=== PATIENT | male | born 1960 | race Caucasian/White ===

== ENCOUNTER → 2017-10-27 14:07 | Outpatient (CLI) | payer BC, SELFPAY ==
[2017-10-27 15:59] LABS: AST(SGOT) 16 U/L (15-37); Alanine Aminotransfer ALT/SGPT 40 U/L (16-61); Albumin, Serum 3.8 g/dL (3.2-5.0); Alkaline Phosphatase 88 U/L (45-117); Anion Gap 11 (5-15); BUN 19 mg/dL (7-18); BUN/Creat Ratio 18.6 RATIO (10-20); Bilirubin, Direct 0.08 mg/dL (0.00-0.30); Calcium,Total 8.6 mg/dL (8.5-10.1); Chloride 106 mmol/L (98-107); Cholesterol 184 mg/dL (200); Creatinine, Serum 1.02 mg/dL (0.70-1.30); EST Glomerular Filtration Rate 80 mL/min (>60); Est Glom Filt Rate - Afr Amer 97 mL/min (>60); Globulin 3.6 g/dL (2.2-4.2); Glucose 259 mg/dL (74-106); High Density Lipoprotein 41 mg/dL; Potassium 4.2 mmol/L (3.5-5.1); Protein, Total 7.4 g/dL (6.4-8.2); Sodium Level 140 mmol/L (136-145); Triglycerides 296 mg/dL; Very Low Density Lipoprotein 59 mg/dL (5-40)
[2017-10-27 16:03] LABS: Hemoglobin A1c 6.8 % (4.2-6.3)
[2017-10-27 16:11] LABS: Microalbumin,Random Urine 15.2 mg/L (NO RANGE EST.); Microalbumin:Creatinine Ratio 18.2 mg/g CRE (<30 mg/g CRE)
== END ==
PROVIDERS: Family Provider Family Medicine; PCP Family Medicine; Visit Provider Family Medicine
DX: E11.9 Type 2 diabetes mellitus without complications (principal); E78.5 Hyperlipidemia, unspecified
CPT/HCPCS: 36415; 80048; 80061; 80076; 82043; 82570; 83036

== ENCOUNTER → 2018-03-02 11:10 | Outpatient (CLI) | payer BC, SELFPAY ==
[2015-12-07 15:32] VITALS: BMI 29.8
--- NOTE | 2018-03-02 11:18 | RAD_ITS ---
STUDY: X-RAY CHEST REASON FOR EXAM: Male, 57 years old. Pneumonia. Cough. TECHNIQUE: Frontal and lateral views of the chest. COMPARISON: None. FINDINGS: The lungs are clear and expanded. There is no demonstrated pleural abnormality. Normal size heart. Normal mediastinum and elaine. Normal visualized pulmonary arteries. Normal visualized aortic arch and descending thoracic aorta. Normal visualized thoracic spine. Normal visualized ribs, clavicles, and shoulders. There is no demonstrated abnormality of the visualized soft tissue structures of the upper abdomen. RAD/Chest PA and Lateral IMPRESSION: Normal x-ray examination of the chest. Electronically Signed: Adilson Romero MD at 17:08 EST , Service support ,
--- OUTSIDE RECORDS SUMMARY | 2018-06-03 15:26 | XMS RPT_ITS ---
:1960 Author Organization [facility] Care Team Providers Name Role Phone TIBURCIO VAZ Attending Unavailable BIRO, TIBURCIO Referring Unavailable BIRO, TIBURCIO Attending Unavailable BIRO, TIBURCIO Referring Unavailable BIRO, TIBURCIO Attending Unavailable BIRO, TIBURCIO Referring Unavailable Jolliff, Katelyn Attending Unavailable Jolliff, Katelyn Referring Unavailable Jolliff, Katelyn Primary Care Unavailable Jolliff, Katelyn Primary Care Unavailable AmauriBridger pichardo Attending Unavailable Jolliff, Katelyn Attending Unavailable Jolliff, Katelyn Primary Care Unavailable PROBLEMS PROBLEMS DATE TYPE CONDITION / CODE ATTENDING STATUS SOURCE 03/02/2018 Unknown J15.9 - Katelyn Heath Active [facility] pneumonia / Repository J15.9(ICD-10) 01/27/2018 Admitting Sprain of ribs, [facility] Diagnosis initial encounter [facility] [place] / Repository S23.41XA(ICD-10) 01/27/2018 Admitting Sprain of [employer], [facility]CIO [facility] of [facility] [place] thoracic spine, Repository initial encounter / S23.3XXA(ICD-10) 01/27/2018 [facility] [employer] [facility] Diagnosis unspecified site [facility] [place] of right knee, Repository initial encounter / S83.91XA(ICD-10) PROCEDURES PROCEDURES No Procedure Records FoundRESULTS RESULTS EMERGENCY DEPARTMENT Observed: 03/07/2018 Status: F Source: PELKIE SUMMARY 5:32 AM [facility] REPOSITORY [facility] Medical Records Department [address] [place] [address] Emergency Department Summary 03/06/18 0249 MR#: [id number] Acct: [id number] Name: RICH MCCONNELL Rep #: [id number] : 1960 57 From: Bridger Baugh MD PCP: Katelyn Heath MD Status: DEP ER - ER Visit Summary Date of Service: 03/06/18 Chief Complaint: Rash History of Present Illness: The patient is a [address] Jaffe. He reports that he has a cough that began approximately 3 days ago. He was seen in the office and had a chest x-ray. States this did not show pneumonia, but that he had different breath sounds on the right. He was started on a Z-Sung and Robitussin cf. He reports that he has not had either of these previously. He notes that he had a small amount of rash yesterday. However, tonight at 1130 the rash became much worse. He took a dose of Benadryl just prior to coming emergency department. States that now the rash is essentially resolved. Patient reports that his cough is improving. States it is productive of white, thick sputum without blood. No fever or chills. No shortness of breath. He has a sore throat is 3 out of 10 severity. Reports he has had diarrhea 4-5 times since starting the antibiotic. Patient denies any change in soap, shampoo, laundry detergent, or fabric softener. No new clothing, bedding, carpeting, or pets. No new medications in the past month. Physical Examination: Vitals: Stable. Afebrile. General: Well-nourished and well-developed. Head: Normocephalic atraumatic. HEENT: No angioedema of the lips, tongue, oropharynx. Neck: Supple, no lymphadenopathy. No JVD. Nontender. Cardiovascular: Regular rate and rhythm. No murmurs. Respiratory: No respiratory distress. Clear to auscultation bilaterally. Abdominal: Soft, nontender, nondistended, normal bowel sounds. No guarding, rebound, or peritoneal signs. Back: Nontender. Extremities: Nontender, no edema. Skin: Normal color, hives scattered over the anterior shins bilaterally. Neurologic: Alert and oriented 3. Cranial nerves II through XII are intact. Normal strength and sensation. Psych: Normal affect. Emergency Department Course and Treatment: Patient refused an IV, labs, UA, or chest x-ray. He was treated with Benadryl and prednisone here. Treatment Plan: Discussed the patient that I do not have an explanation for his allergic reaction. However, if the only things that were new were Zithromax and Robitussin cf. and he had a negative chest x-ray that I would stop these. He will be discharged with Zyrtec and 4 additional days of prednisone. Instructed follow-up Dr. Jaffe in 1-2 days not improving. Return to the emergency department for any worsening symptoms. Disposition: To home in improved and stable condition. Impression: 1. Allergic reaction, acute. 2. URI. This note was generated with [employer] dictation software. It may contain incorrect words, spelling, and punctuation that were not noted in review of the chart prior to signing ED Disposition - Plan for ED Patient: Disposition: Home or Assisted Living Chief Complaint: Allergic Reaction Instructions: ED Drug React Allergic Prescriptions: Cetirizine HCl [Zyrtec] 10 mg PO DAILY #14 capsule predniSONE tablet 40 mg PO DAILY #8 tablet Referrals: Katelyn Heath MD [Primary Care Provider] - 1-2 Days if not improving What to do if you have Problems For any increased pain, shortness of breath, bleeding, nausea or vomiting, chest pain, or any unexpected problems, contact your Primary Care Provider. Call [facility] ([phone]) or report to the closest Emergency Room. Call 911 if necessary. 03/07/18 0532 <Electronically signed by Bridger Baugh MD> Date Bridger Baugh MD Cosigner Signature (If Indicated): Date CC: Katelyn Heath MD CHEST PA AND LATERAL Observed: 03/02/2018 Status: F Source: MADISYN 11:18 AM [facility] REPOSITORY [facility] Imaging Services [address] [place] [address] Chest PA and Lateral MR#: [id number] Acct: [id number] Name: RICH MCCONNELL Rep #: [id number] : 1960 M 57 From: Adilson Romero MD PCP: Katelyn Heath MD Status: REG CLI Study: Chest PA and Lateral Date of Exam: 03/02/18 Exam# [id number] Ordering Dr: Katelyn Heath MD STUDY: X-RAY CHEST REASON FOR EXAM: Male, 57 years old. Pneumonia. Cough. TECHNIQUE: Frontal and lateral views of the chest. COMPARISON: None. FINDINGS: The lungs are clear and expanded. There is no demonstrated pleural abnormality. Normal size heart. Normal mediastinum and elaine. Normal visualized pulmonary arteries. Normal visualized aortic arch and descending thoracic aorta. Normal visualized thoracic spine. Normal visualized ribs, clavicles, and shoulders. There is no demonstrated abnormality of the visualized soft tissue structures of the upper abdomen. RAD/Chest PA and Lateral IMPRESSION: Normal x-ray examination of the chest. Electronically Signed: Adilson Romero MD at 17:08 EST , Service support , CC: Katelyn Heath MD [employer] Net: Signed XR KNEE RIGHT 3 Observed: 01/27/2018 Status: F Source: [employer] 11:34 AM [place] REPOSITORY EXAM TYPE: XR KNEE RIGHT 3 VIEWS EXAM DATE AND TIME: 01/27/2018 11:34 AM EST INDICATION: 57-year-old male with knee pain. COMPARISON: None. TECHNIQUE: 3 views of the right knee. FINDINGS: No acute fracture. Joint alignment is anatomic. There is minimal degenerative spurring of the medial knee compartment. No significant joint effusion. Soft tissues are within normal limits. IMPRESSION: 1. No acute fracture or traumatic malalignment.. 2. Minimal degenerative spurring of the medial knee compartment. XR SPINE THORACIC 2 Observed: 01/27/2018 Status: F Source: [employer] [facility]) VIEWS 11:33 AM SYSTEM ([employer]) REPOSITORY XR SPINE THORACIC 2 VIEWS CLINICAL STATEMENT: Fall at work. Back pain. COMPARISON: None. TECHNIQUE: AP, lateral and swimmer's projections. FINDINGS: Thoracic vertebral bodies appear maintained in height and the pedicles are intact. There is multilevel mild to moderate degenerative disc changes predominantly at the lower thoracic levels. No acute fracture is visible. There is no obvious paravertebral swelling. IMPRESSION: Multilevel [id number] degenerative disc changes of the dorsal spine with no acute osseous abnormality. XR RIBS RIGHT Observed: 01/27/2018 Status: F Source: [employer] [facility] 11:33 AM [place] REPOS[place] EXAM TYPE: XR RIBS RIGHT EXAM DATE AND TIME: 01/27/2018 11:33 AM EST INDICATION: 57 years old Male with pain after trauma. COMPARISON: None. TECHNIQUE: Frontal view of the chest. FINDINGS: No pneumothorax, pleural effusion, or focal airspace consolidation. Heart is normal in size. No acute displaced rib fractures. IMPRESSION: 1. No acute cardiopulmonary process. 2. No acute displaced rib fractures. BASIC METABOLIC Collected: 10/27/2017 Status: F Source: [place] PROFILE (BMP) 2:09 PM [facility] REPOSITORY TYPE CODE TESTS RESULT OUT OF RANGE REFERENCE UNITS LAB L501.0100 74-106 mg/dL High GLU 259 Result Comment: Glucose result greater than or equal to 200 mg/dL suggests DIABETES MELLITUS per A.D.A. criteria. Please note revised GLUCOSE reference range effective 2017. LAB L501.1000 7-18 mg/dL High BUN 19 LAB L501.1100 0.70-1.30 mg/dL Normal CREAT,SERUM 1.02 Result Comment: The validity of the calculated GFR AND GFRAA in patients over 70 years has not been determined. Clinical correlation is essential. LAB L501.1110 >60 mL/min Normal EST GFR 80 Result Comment: Non- GFR Calc LAB L501.1115 >60 mL/min Normal EST GFR - AA 97 Result Comment: GFR Calc LAB L501.1300 10-20 RATIO Normal BUN/CRE 18.6 LAB L501.2200 8.5-10.1 mg/dL CA Normal 8.6 LAB L501.5300 136-145 mmol/L NA Normal 140 LAB L501.5600 3.5-5.1 mmol/L K Normal 4.2 LAB L501.5900 98-107 mmol/L CL Normal 106 LAB L501.6100 21.0-32.0 mmol/L Normal CO2 23.0 LAB L501.6200 5-15 Normal GAP 11 Performed By: #### L500.2500, L500.3400, L500.4100 #### [facility] [address] [place], [address] LIVER PROFILE Collected: 10/27/2017 Status: F Source: [place] 2:09 PM [facility] REPOSITORY TYPE CODE TESTS RESULT OUT OF RANGE REFERENCE UNITS LAB L501.1500 6.4-8.2 g/dL Normal T PROT 7.4 LAB L501.1800 3.2-5.0 g/dL Normal ALB 3.8 LAB L501.1950 2.2-4.2 g/dL Normal GLOB 3.6 LAB L501.4100 15-37 U/L Normal AST 16 LAB L501.4305 45-117 U/L Normal ALK P 88 LAB L501.4405 16-61 U/L Normal ALT 40 LAB L501.4600 0.20-1.00 mg/dL Normal T BILI 0.30 LAB L501.4700 0.00-0.30 mg/dL Normal D BILI 0.08 Performed By: #### L500.2500, L500.3400, L500.4100 #### [facility] [address] [place], [address] LIPID PROFILE Collected: 10/27/2017 Status: F Source: [place] 2:09 PM [facility] REPOSITORY TYPE CODE TESTS RESULT OUT OF RANGE REFERENCE UNITS LAB L501.4900 200 mg/dL Normal CHOL 184 Result Comment: <200 mg/dL Desirable 200-240 mg/dL Borderline >240 mg/dL High Risk LAB L501.5000 mg/dL High TRIG 296 Result Comment: The drugs N-Acetylcysteine and Metamizole may falsely depress this assay. Serum Triglycerides Reference Interval Normal <150 mg/dL Borderline high 150 - 199 mg/dL High 200 - 499 mg/dL Very High > or = 500 mg/dL LAB L501.6400 mg/dL Normal HDL 41 Result Comment: The drugs N-Acetylcysteine and Metamizole may falsely depress this assay. Reference Range HDL <40 mg/dL Low HDL Cholesterol HDL >or= 60 mg/dL High HDL Cholesterol LAB L501.6500 0-130 mg/dL Normal LDL 84 LAB L501.6600 5-40 mg/dL High VLDL 59 Performed By: #### L500.2500, L500.3400, L500.4100 #### [facility] [address] [place], [place], [address] HEMOGLOBIN A1C Collected: 10/27/2017 Status: F Source: M[place]YN 2:09 PM [facility] REPOSITORY TYPE CODE TESTS RESULT OUT OF RANGE REFERENCE UNITS LAB L501.9985 4.2-6.3 % High HGB A1C 6.8 Performed By: #### L501.9985 #### [facility] [address] [place], [place], [address] MICROALB:CREAT Collected: 10/27/2017 Status: F Source: [place] RATIO,RANDOM UR 2:09 PM [facility] REPOSITORY TYPE CODE TESTS RESULT OUT OF RANGE REFERENCE UNITS LAB L501.1200 NO RANGE EST. mg/dL Normal UR CREAT 83.30 LAB L502.0500 NO RANGE EST. mg/L Normal 15.2 MICROALBUMIN ,UR LAB L502.0600 <30 mg/g CRE mg/g CRE Normal 18.2 MALB:CREAT Performed By: #### L502.0250 #### [facility] [address] [place], [address] ALLERGIES ALLERGIES DATE TYPE / CODE NAME / CODE REACTION SEVERITY SOURCE 03/06/2018 Drug No Known Unknown [facility] Allergy/4160 Allergies/F00 Hospital 41337(SNOMED 3143544(RXNOR Repository CT) M) ENCOUNTERS ENCOUNTERS ADMIT/DISCHARGE ACCOUNT NUMBER ADMITTING ENCOUNTER LOCATION SOURCE CLASS 03/06/2018/03/06/20 [id number] Emergency [address] ding:ED Repository 03/02/2018 [id number] Ambulatory [facility] ding:MTRAD Repository 01/27/2018 [id number] Ambulatory [facility] [place] Repository 01/27/2018 [id number] Ambulatory [facility] [place] 01/27/2018 [id number] Ambulatory [facility] [place] 01/27/2018 [id number] Ambulatory [facility] [place] 01/27/2018 [id number] Ambulatory [facility] [place] Rep[place] 10/27/2017 [id number] Ambulatory [facility] ding:MFPLAB Repository PAYERS PAYERS ENCOUNTER GUARANTOR PAYER SUBSCRIBER SOURCE 03/06/2018 RICH [facility] [place] [address] [place] [id number] Insurance:ANTHEMPolic GoldsmithDOB: [employer] y Number: [id number] Health Doctors [id number] [place]ository [place] [id number]: Date:[id number], [facility] [address]AR: 03/06/2018 Secondary NOT GIVENUNK [place] Insurance:SELF PAY [facility] Number: Effective Repository Date:2018-03-06 03/02/2018 RICH [facility] [address] [place]yn [id number] Insurance:ANTHEMPolic GoldsmithDOB: [facility] [employer] y Number: [id number] Health Doctors [id number] Repository [place] [id number]: Date:0182-74-37KH [address], [facility]) [address]AG: 03/02/2018 Secondary NOT GIVENUNK Moz[place] Insurance:SELF PAY [facility] Number: Effective Repository Date:2018-03-02 10/27/2017 Rich M Primary [place] [address] [place] [id number] Insurance:ANTHEMPolic GoldshengithB: [employer] y Number: [id number] Haven [id number] Repository [place] [address]Wbb: Date:8068-25-00[address]EQAHMVK, [place] () [address]AL: 10/27/2017 Secondary NOT GIVENUNK Madisyn Insurance:SELF PAY [facility] Number: Effective Repository Date:2017-10-27
== END ==
PROVIDERS: Family Provider Family Medicine; PCP Family Medicine; Referring Provider Family Medicine; Visit Provider Family Medicine
DX: J15.9 Unspecified bacterial pneumonia (principal)
CPT/HCPCS: 71046

== ENCOUNTER 2018-03-06 02:27 | Emergency (ER) | payer BC, SELFPAY ==
[2018-03-06 02:28] VITALS: BP 172/99; PULSE 87; RESP 20; TEMP 36.6; O2SAT 96; BMI 26.4
--- NOTE | 2018-03-06 02:50 | ED.DCSUM_ITS ---
- ER Visit Summary Date of Service: 03/06/18 Chief Complaint: Rash History of Present Illness: The patient is a [address] Jaffe. He reports that he has a cough that began approximately 3 days ago. He was seen in the office and had a chest x-ray. States this did not show pneumonia, but that he had different breath sounds on the right. He was started on a Z-Sung and Robitussin cf. He reports that he has not had either of these previously. He notes that he had a small amount of rash yesterday. However, tonight at 1130 the rash became much worse. He took a dose of Benadryl just prior to coming emergency department. States that now the rash is essentially resolved. Patient reports that his cough is improving. States it is productive of white, thick sputum without blood. No fever or chills. No shortness of breath. He has a sore throat is 3 out of 10 severity. Reports he has had diarrhea 4-5 times since starting the antibiotic. Patient denies any change in soap, shampoo, laundry detergent, or fabric softener. No new clothing, bedding, carpeting, or pets. No new medications in the past month. Physical Examination: Vitals: Stable. Afebrile. General: Well-nourished and well-developed. Head: Normocephalic atraumatic. HEENT: No angioedema of the lips, tongue, oropharynx. Neck: Supple, no lymphadenopathy. No JVD. Nontender. Cardiovascular: Regular rate and rhythm. No murmurs. Respiratory: No respiratory distress. Clear to auscultation bilaterally. Abdominal: Soft, nontender, nondistended, normal bowel sounds. No guarding, rebound, or peritoneal signs. Back: Nontender. Extremities: Nontender, no edema. Skin: Normal color, hives scattered over the anterior shins bilaterally. Neurologic: Alert and oriented ?3. Cranial nerves II through XII are intact. Normal strength and sensation. Psych: Normal affect. Emergency Department Course and Treatment: Patient refused an IV, labs, UA, or chest x-ray. He was treated with Benadryl and prednisone here. Treatment Plan: Discussed the patient that I do not have an explanation for his allergic reaction. However, if the only things that were new were Zithromax and Robitussin cf. and he had a negative chest x-ray that I would stop these. He will be discharged with Zyrtec and 4 additional days of prednisone. Instructed follow-up Dr. Jaffe in 1-2 days not improving. Return to the emergency department for any worsening symptoms. Disposition: To home in improved and stable condition. Impression: 1. Allergic reaction, acute. 2. URI. This note was generated with [employer] dictation software. It may contain incorrect words, spelling, and punctuation that were not noted in review of the chart prior to signing ED Disposition - Plan for ED Patient: Disposition: Home or Assisted Living Chief Complaint: Allergic Reaction Instructions: ED Drug React Allergic Prescriptions: Cetirizine HCl [Zyrtec] 10 mg PO DAILY #14 capsule predniSONE tablet 40 mg PO DAILY #8 tablet Referrals: Katelyn Heath MD [Primary Care Provider] - 1-2 Days if not improving
[2018-03-06] MEDS: DiphenhydrAMINE 25 MG Capsule PO (03:05)
[2018-03-06] MEDS: predniSONE 20 MG Tablet 60 MG PO (03:05)
[2018-03-06 03:07] VITALS: BP 164/85; PULSE 80; RESP 16; O2SAT 98
== END 2018-03-06 03:09 | disposition home or self-care (01) ==
LOC: ED 02:56
PROVIDERS: Emergency Provider Emergency Medicine; Family Provider Family Medicine; PCP Family Medicine
DX: T78.40XA Allergy, unspecified, initial encounter (principal); J06.9 Acute upper respiratory infection, unspecified; E11.9 Type 2 diabetes mellitus without complications; I10 Essential (primary) hypertension; G47.33 Obstructive sleep apnea (adult) (pediatric); Z79.84 Long term (current) use of oral hypoglycemic drugs; Z79.899 Other long term (current) drug therapy
CPT/HCPCS: 99283

== ENCOUNTER → 2018-11-04 | Outpatient (CLI) | payer BC, SELFPAY ==
[2018-11-04 13:01] LABS: AST(SGOT) 18 U/L (15-37); Alanine Aminotransfer ALT/SGPT 35 U/L (16-61); Alkaline Phosphatase 76 U/L (45-117); Anion Gap 7 (5-15); BUN 21 mg/dL (7-18); BUN/Creat Ratio 23.9 RATIO (10-20); Bilirubin, Direct 0.12 mg/dL (0.00-0.30); Calcium,Total 8.9 mg/dL (8.5-10.1); Chloride 111 mmol/L (98-107); Cholesterol 161 mg/dL (200); Creatinine, Serum 0.88 mg/dL (0.70-1.30); EST Glomerular Filtration Rate 95 mL/min (>60); Est Glom Filt Rate - Afr Amer 115 mL/min (>60); Globulin 3.5 g/dL (2.2-4.2); Glucose 130 mg/dL (74-106); High Density Lipoprotein 46 mg/dL; Potassium 4.3 mmol/L (3.5-5.1); Protein, Total 7.5 g/dL (6.4-8.2); Sodium Level 142 mmol/L (136-145); Triglycerides 235 mg/dL; Very Low Density Lipoprotein 47 mg/dL (5-40)
== END | disposition home or self-care (01) ==
LOC: MFPLAB 09:49
PROVIDERS: Family Provider Family Medicine; PCP Family Medicine; Referring Provider Family Medicine; Visit Provider Family Medicine
DX: E11.9 Type 2 diabetes mellitus without complications (principal)
CPT/HCPCS: 36415; 80048; 80061; 80076

== ENCOUNTER → 2018-11-25 | Outpatient (CLI) | payer BC, SELFPAY ==
--- NOTE | 2018-11-25 09:18 | RAD_ITS ---
STUDY: X-RAY - LEFT KNEE REASON FOR EXAM: Male, 58 years old. Left knee pain TECHNIQUE: 4 view(s) of the knee. COMPARISON: None. FINDINGS: Normal visualized distal femur. Normal visualized proximal tibia and fibula. Normal proximal tibiofibular articulation. Normal medial femorotibial compartment. Normal lateral femorotibial compartment. Normal patellofemoral articulation. The soft tissue structures are unremarkable. RAD/Knee 4 or More Views IMPRESSION: Normal x-ray examination of the knee. Electronically Signed: Patti Marti, at 17:43 EDT Tel , Service support ,
== END | disposition home or self-care (01) ==
LOC: MTRAD 09:17
PROVIDERS: Family Provider Family Medicine; PCP Family Medicine; Referring Provider Family Medicine; Visit Provider Family Medicine
DX: M25.562 Pain in left knee (principal)
CPT/HCPCS: 73564

== ENCOUNTER 2018-12-23 07:30 | Outpatient (RCR) | payer BC, SELFPAY ==
--- NOTE | 2018-12-19 08:35 | HP.PTEVAL_ITS ---
Patient's Visit Information STEPHANIE MCCONNELL is a 58 year old M referred to Physical Therapy by Katelyn Heath MD with a diagnosis of LEFT KNEE PAIN. Date of Evaluation: 12/19/18 Physical Therapist: Riley Hurst PT, Cert MDT, OCS - Visit Plan Frequency: 2x /Week Duration: 6 Weeks Plan: PT INTERVENTIONS PRE'S QUADS/HAMS/HIP,FLEXABLITY,FUNCTIONAL STRENGTHENING,MODALITIES - Subjective Findings: This 58 y/o male presents to physical therapy with left knee pain. Patient changed jobs with left knee pain . Patient medial knee pain and patella region inferior aspect. Pain is described as ache. Aggravating factors w alking,standing,squatting,kneeling and Stairs. Alevialting factors none. Patient pain doesnt affects sleeping . Patient denies parathesia/tingling. Patient pain affects jobs demands and ADL' . Patient pain affects QOL. SOCAIL: . VOCATION: [employer] - Pain Left Knee Pain Intensity (Out of 10): 4 Pain Intensity Range: 10 - Objective POSTURE:WFL. GAIT: mild decrease stance time. NEURO: intact. EDEMA: absent. AROM: 0-140 degrees supine flexion. MMT: quads4-/5,hams 4/5 ,hip abd/add 4- /5,ankle 5/5. FLEXABILITY: hams min tight. STAIRS: one step at time. PROPRIOCEPTIN: intact - Special Tests R Knee Tod - Meniscus: Negative R Knee Jordon - ACL: Negative R Knee Anterior Drawer - ACL: Negative R Knee Posterior Drawer - PCL: Negative R Knee Valgus - MCL: Positive R Knee Varus - LCL: Positive R Knee Patellar Grind - PFS: Negative - Goals Goal 1:: Indeopendant with HEP Goal Time Frame: 4-6 Weeks Goal 2:: Decrease knee pain by 60% or> to improve function. Goal Time Frame: 4-6 Weeks Goal 3:: Patient be able to perform ADL'S and job demnads without pain. Goal Time Frame: 4-6 Weeks Goal 4:: Patient to improve LFES score by 10points or > to improve QOL Goal Time Frame: 4-6 Weeks - Rehabilitation Potential Physical Therapy Diagnosis: Patient has medial knee pain worse with walking ,standing affects job demnads. Rehabilitation Potential: Good - Anticipated Interventions Patient/Client Instruction: Educate patient on: Condition, Plan of Care For the Purpose of:: To decrease pain, To increase ROM, To improve muscle performance and motor function, To increase tolerance to activity/condition/position, To improve ability of physical actions for home/community/work/leisure, To improve gait and locomotor functions, To improve health of tissue, To decrease soft tissue restriction, To increase flexibility/ROM, To improve ability to perform tasks related to life management Therapeutic Exercise to Include: Strength training, Endurance training, Postural training, Flexibilty training, Dynamic Lumbar Stabilization For the Purpose of:: To decrease pain, To increase ROM, To improve muscle pe rformance and motor function, To increase tolerance to activity/condition/position, To improve ability of physical actions for home/community/work/leisure, To improve health of tissue, To decrease soft tissue restriction, To increase flexibility/ROM, To improve ability to perform tasks related to life management TENS: Yes IF ES: Yes Cryotherapy (ice pack, ice massage): Yes Thermo therapy (hot pack): Yes Ultrasound (thermal/non thermal): Yes For the Purpose of:: To decrease pain, To increase ROM, To improve health of tissue, To decrease soft tissue restriction, To increase flexibility/ROM Thank you for the opportunity to evaluate your patient. For Medicare and Medicare HMO plans, please review the plan of care and approve it. It will need to be FAXED BACK to us at [phone] for Medicare purposes. For Medicare only, by signing this I certify the plan of care. Please let me know if there are questions or concerns regarding this plan of care. Physician Signature: Date:
--- NOTE | 2019-02-01 13:29 | HP.PTDCNRP_ITS ---
HP - Discharge Summary (1) - Patient Information STEPHANIE MCCONNELL was seen in my office for initial evaluation on 12/19/18. The following Plan of Care was established for this patient: Initial Frequency: 2x /Week Initial Duration: 6 Weeks - Anticipated Interventions Patient/Client Instruction: Educate patient on: Condition, Plan of Care For the Purpose of:: To decrease pain, To increase ROM, To improve muscle pe rformance and motor function, To increase tolerance to activity/condition/position, To improve ability of physical actions for home/community/work/leisure, To improve gait and locomotor functions, To improve health of tissue, To decrease soft tissue restriction, To increase flexibility/ROM, To improve ability to perform tasks related to life management Therapeutic Exercise to Include: Strength training, Endurance training, Postural training, Flexibilty training, Dynamic Lumbar Stabilization For the Purpose of:: To decrease pain, To increase ROM, To improve muscle performance and motor function, To increase tolerance to activity/condition/position, To improve ability of physical actions for home/community/work/leisure, To improve health of tissue, To decrease soft tissue restriction, To increase flexibility/ROM, To improve ability to perform tasks related to life management TENS: Yes IF ES: Yes Cryotherapy (ice pack, ice massage): Yes Thermo therapy (hot pack): Yes Ultrasound (thermal/non thermal): Yes For the Purpose of:: To decrease pain, To increase ROM, To improve health of tissue, To decrease soft tissue restriction, To increase flexibility/ROM This patient was last seen in our office . Pertinent comments regarding their Physical therapy will appear below: Patient seen for PT for Intial PT and a visit for ROM and strengthening for left knee pain,thus is d/c. At this point I will be discontinuing this patient from physical therapy. I would be happy to see this patient again in the future if found appropriate by the physician. Thank you! Riley Hurst, PT, Cert MDT, OCS
== END 2018-12-23 19:00 | disposition home or self-care (01) ==
LOC: PT 07:30
PROVIDERS: Family Provider Family Medicine; PCP Family Medicine; Referring Provider Family Medicine; Visit Provider Family Medicine
DX: M25.562 Pain in left knee (principal)
CPT/HCPCS: 97110; 97162

== ENCOUNTER 2019-05-20 00:25 | Emergency (ER) | payer OTHER, SELFPAY ==
[2019-05-20 00:26] VITALS: BP 130/85; PULSE 89; RESP 20; TEMP 36.9; O2SAT 97; BMI 28.0
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
[2019-05-20] MEDS: Orphenadrine 60 MG/2 ML Ampul IM (01:17)
[2019-05-20] MEDS: Ketorolac 30 MG/ML Syringe IM (01:17)
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
[2019-05-20 02:59] VITALS: RESP 16
== END 2019-05-20 03:08 | disposition home or self-care (01) ==
PROVIDERS: Emergency Provider Emergency Medicine; PCP Family Medicine
DX: S29.012A Strain of muscle and tendon of back wall of thorax, initial encounter (principal); S39.012A Strain of muscle, fascia and tendon of lower back, initial encounter; I10 Essential (primary) hypertension; E11.9 Type 2 diabetes mellitus without complications; Z79.84 Long term (current) use of oral hypoglycemic drugs; Z79.899 Other long term (current) drug therapy; V67.0XXA Driver of heavy transport vehicle injured in collision with fixed or stationary object in nontraffic accident, initial encounter; Y93.I9 Activity, other involving external motion; Y92.63 Factory as the place of occurrence of the external cause; Y99.0 Civilian activity done for income or pay
CPT/HCPCS: 72070; 72100; 96372; 99284

== ENCOUNTER → 2019-07-07 | Outpatient (CLI) | payer OTHER, SELFPAY ==
[2019-06-28 08:16] VITALS: BMI 28.0
[2019-07-07 12:59] LABS: AST(SGOT) 19 U/L (15-37); Alanine Aminotransfer ALT/SGPT 42 U/L (16-61); Anion Gap 8 (5-15); BUN 23 mg/dL (7-18); BUN/Creat Ratio 24.2 RATIO (10-20); Calcium,Total 9.5 mg/dL (8.5-10.1); Chloride 104 mmol/L (98-107); Cholesterol 166 mg/dL (200); Creatinine, Serum 0.95 mg/dL (0.70-1.30); EST Glomerular Filtration Rate 87 mL/min (>60); Est Glom Filt Rate - Afr Amer 105 mL/min (>60); Glucose 150 mg/dL (74-106); High Density Lipoprotein 41 mg/dL; Potassium 3.9 mmol/L (3.5-5.1); Sodium Level 136 mmol/L (136-145); Triglycerides 309 mg/dL; Very Low Density Lipoprotein 62 mg/dL (5-40)
== END | disposition home or self-care (01) ==
PROVIDERS: PCP Family Medicine; Referring Provider Family Medicine; Visit Provider Family Medicine
DX: E78.5 Hyperlipidemia, unspecified (principal); E11.9 Type 2 diabetes mellitus without complications; I10 Essential (primary) hypertension
CPT/HCPCS: 36415; 80048; 80061; 84450; 84460

== ENCOUNTER 2019-07-11 07:00 | Outpatient (RCR) | payer OTHER, SELFPAY ==
[2019-05-24 07:33] VITALS: BMI 28.0
[2019-05-31 07:46] VITALS: BMI 28.0
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
--- NOTE | 2019-07-11 08:53 | HP.PTDCSUM ---
It has been my pleasure to treat STEPHANIE MCCONNELL referred by RYANNE Sullivan, with the diagnosis of LUMBAR STRAIN AND for a total of 11 visit(s). Discharge Date: 07/11/19 Please see the following information for a summary of their discharge status. Subjective: Doing well.. alot better ,Less pain at worlk with mpre moblity Bilateral Back Pain Intensity (Out of 10): 1 % Improvement: 75 Objective/Function: POSTURE: mild foward posture. GAIT: reciprocal pattern. SYMMTRIES: align. PALAPTION: tender SI. FLEXABILTY: hams min/mod. LUMBAR ROM: flexion min loss,extension min loss Goal 1:: Patient to be I with HEP. Goal Progress: Goal Met Goal 2:: Patient imprve posture for job demnads. Goal Progress: Goal Met Goal 3:: Patient decrease pain by 60 % or > to improve function with job demnads. Goal Progress: Goal Met Goal 4:: Patient to improve LUMBAR ROM for function of recovery. Goal Progress: Goal Met Goal 5:: Improve bcak owesstry score by 5 ponts or > to improve function. Goal Progress: Goal Met Goal 6:: Patient to RTW fully duty without limitaions Goal Progress: Goal Met Plan: D/C Discharge Comments: HEP If there are questions or concerns regarding this patient's physical therapy, please feel free to call me at [phone]. Thank you for the referral of this patient. Sincerely, Riley Hurst, PT, Cert MDT, OCS
== END 2019-07-11 19:00 | disposition home or self-care (01) ==
LOC: PT 07:00
PROVIDERS: PCP Family Medicine; Referring Provider Physician Assistant; Visit Provider Physician Assistant
DX: S39.012D Strain of muscle, fascia and tendon of lower back, subsequent encounter (principal); S29.019D Strain of muscle and tendon of unspecified wall of thorax, subsequent encounter
CPT/HCPCS: 97014; 97032; 97110; 97161; G0283

== ENCOUNTER → 2019-07-28 | Outpatient (CLI) | payer OTHER, SELFPAY ==
[2019-06-28 08:16] VITALS: BMI 28.0
[2019-07-28 12:49] LABS: Absolute Lymphocyte Count 1.71 X10^3/uL (0.83-4.51); Absolute Neutrophil Count 4.8 X10^3/uL (2.0-7.7); Basophil# 0.02 X10^3/uL; Basophil% 0.3 % (0-1); Eosinophil# 0.09 X10^3/uL; Eosinophils% 1.2 % (0-5); Hematocrit 49.9 % (40-54); Hemoglobin 17.2 g/dL (13.0-16.5); Lymphocyte # 1.71 X10^3/ul (4.0); Lymphocyte % 23.6 % (19-41); Mean Corp Hgb Conc 34.5 g/dL (32-36); Mean Platelet Vol. 10.9 fl (6.2-12.0); Monocyte# 0.59 X10^3/uL; Monocyte% 8.1 % (0-10); NRBC Flagged by Analyzer 0 % (0-5); Neutrophil # 4.83 X10^3/uL (2.7-7.7); Neutrophil % 66.5 % (47-70); Platelet Count 182 K/mm3 (150-450); RBC Distribution Width CV 12.6 % (11.6-14.6); RBC Distribution Width SD 37.7 fl (35.1-43.9); Red Blood Count 5.94 M/mm3 (4.6-6.2); White Blood Count 7.3 K/mm3 (4.4-11.0)
[2019-07-28 13:04] LABS: International Normalized Ratio 1.1; Prothrombin Time (Protime)PT. 13.8 SECONDS (11.7-14.9)
[2019-07-28 13:05] LABS: Partial Thromboplast Time 34.2 Seconds (24.1-36.2)
[2019-07-28 15:32] LABS: ALB/GLOB Ratio 1.1 RATIO (0.9-2.4); AST(SGOT) 18 U/L (15-37); Alanine Aminotransfer ALT/SGPT 44 U/L (16-61); Alkaline Phosphatase 94 U/L (45-117); Anion Gap 11 (5-15); BUN 22 mg/dL (7-18); BUN/Creat Ratio 20.2 RATIO (10-20); CRP < 2.90 mg/L (0.0-3.0); Calcium,Total 9.1 mg/dL (8.5-10.1); Chloride 102 mmol/L (98-107); Creatinine, Serum 1.09 mg/dL (0.70-1.30); EST Glomerular Filtration Rate 74 mL/min (>60); Est Glom Filt Rate - Afr Amer 89 mL/min (>60); Globulin 3.5 g/dL (2.2-4.2); Glucose 317 mg/dL (74-106); Potassium 4.4 mmol/L (3.5-5.1); Protein, Total 7.5 g/dL (6.4-8.2); Sodium Level 137 mmol/L (136-145)
== END | disposition home or self-care (01) ==
LOC: MFPLAB 10:21
PROVIDERS: PCP Family Medicine; Visit Provider Family Medicine
DX: R10.9 Unspecified abdominal pain (principal)
CPT/HCPCS: 36415; 80053; 85025; 85610; 85730; 86140

== ENCOUNTER → 2019-10-12 | Outpatient (CLI) | payer OTHER, SELFPAY ==
[2019-06-28 08:16] VITALS: BMI 28.0
== END | disposition home or self-care (01) ==
LOC: LABSPEC 13:16
PROVIDERS: PCP Family Medicine; Referring Provider Family Medicine; Visit Provider Family Medicine
DX: Z20.828 Contact with and (suspected) exposure to other viral communicable diseases (principal)
CPT/HCPCS: 87635; U0003

== ENCOUNTER → 2019-10-27 | Outpatient (CLI) | payer OTHER, SELFPAY ==
[2019-06-28 08:16] VITALS: BMI 28.0
--- NOTE | 2019-10-27 10:50 | VDLE_ITS ---
Reason For Study: Pain Procedure LEFT Exam performed in department. GSV is normal. A preliminary report was called and/or faxed CFV is compressible, spontaneous, phasic, to Valeria. competent, and demonstrates normal augmentation. FV is compressible, spontaneous, phasic, competent and demonstrates normal augmentation. POP V is compressible, spontaneous, phasic, competent and demonstrates normal augmentation. T/P Trunk is compressible. PTV is compressible. LT PerV is compressible. Interpretation Summary Deep veins of the left lower extremity are patent and compressible segmentally. There is no evidence of left lower extremity deep vein thrombosis. Valvular competence appears intact within the proximal deep venous system on the left . The left great saphenous vein appears patent and compressible segmentally. Ordering Physician: TAL WAGNER Referring Physician: Katelyn Heath M.D. Performed By: Juanita Mccarthy RVT and Student
== END | disposition home or self-care (01) ==
PROVIDERS: PCP Family Medicine
DX: M79.662 Pain in left lower leg (principal)
CPT/HCPCS: 93971

== ENCOUNTER → 2019-12-01 | Outpatient (CLI) | payer OTHER, SELFPAY ==
[2019-06-28 08:16] VITALS: BMI 28.0
--- NOTE | 2019-12-01 16:04 | RAD_ITS ---
STUDY: X-RAY CHEST REASON FOR EXAM: Male, 59 years old. sob TECHNIQUE: PA and lateral views of the chest. COMPARISON: 03/02/2018 FINDINGS: The lungs are clear and expanded. There is no demonstrated pleural abnormality. Normal size heart. Normal mediastinum and elaine. Normal visualized pulmonary arteries. Normal visualized aortic arch and descending thoracic aorta. Normal visualized thoracic spine. Normal visualized ribs, clavicles, and shoulders. There is no demonstrated abnormality of the visualized soft tissue structures of the upper abdomen. RAD/Chest PA and Lateral IMPRESSION: Normal x-ray examination of the chest. Electronically Signed: Chuck Yousif MD at 7:49 EDT Tel , Service support ,
[2019-12-01 17:50] LABS: Absolute Lymphocyte Count 1.66 X10^3/uL (0.83-4.51); Absolute Neutrophil Count 3.3 X10^3/uL (2.0-7.7); Basophil# 0.01 X10^3/uL; Basophil% 0.2 % (0-1); Eosinophil# 0.12 X10^3/uL; Eosinophils% 2.1 % (0-5); Lymphocyte # 1.66 X10^3/ul (4.0); Lymphocyte % 29.4 % (19-41); Mean Corp Hgb Conc 33.3 g/dL (32-36); Mean Corpuscular Hgb 28.5 pg (27.0-32.0); Mean Corpuscular Volume 85.4 fL (80-94); Mean Platelet Vol. 11.2 fl (6.2-12.0); Monocyte# 0.53 X10^3/uL; Monocyte% 9.4 % (0-10); NRBC Flagged by Analyzer 0 % (0-5); Neutrophil % 58.4 % (47-70); Platelet Count 195 K/mm3 (150-450); RBC Distribution Width CV 12.8 % (11.6-14.6); RBC Distribution Width SD 39.5 fl (35.1-43.9); Red Blood Count 4.92 M/mm3 (4.6-6.2); White Blood Count 5.7 K/mm3 (4.4-11.0)
[2019-12-01 18:14] LABS: AST(SGOT) 11 U/L (15-37); Alanine Aminotransfer ALT/SGPT 26 U/L (16-61); Albumin, Serum 3.5 g/dL (3.2-5.0); Alkaline Phosphatase 90 U/L (45-117); Anion Gap 7 (5-15); BUN 19 mg/dL (7-18); BUN/Creat Ratio 18.4 RATIO (10-20); Calcium,Total 8.7 mg/dL (8.5-10.1); Chloride 106 mmol/L (98-107); Creatinine, Serum 1.03 mg/dL (0.70-1.30); EST Glomerular Filtration Rate 79 mL/min (>60); Est Glom Filt Rate - Afr Amer 95 mL/min (>60); Globulin 3.5 g/dL (2.2-4.2); Glucose 302 mg/dL (74-106); Potassium 3.8 mmol/L (3.5-5.1); Sodium Level 137 mmol/L (136-145); Thyroid Stim Hormone (TSH) 1.42 uIU/mL (0.358-3.74)
== END | disposition home or self-care (01) ==
LOC: MTLAB 16:03
PROVIDERS: PCP Family Medicine; Referring Provider Family Medicine; Visit Provider Family Medicine
DX: R06.02 Shortness of breath (principal)
CPT/HCPCS: 36415; 71046; 80053; 84443; 85025

== ENCOUNTER → 2020-01-15 09:47 | Outpatient (CLI) | payer OTHER, SELFPAY ==
[2019-06-28 08:16] VITALS: BMI 28.0
[2020-01-15 12:39] LABS: Absolute Lymphocyte Count 1.86 X10^3/uL (0.83-4.51); Absolute Neutrophil Count 4.2 X10^3/uL (2.0-7.7); Basophil# 0.02 X10^3/uL; Basophil% 0.3 % (0-1); Eosinophil# 0.08 X10^3/uL; Eosinophils% 1.2 % (0-5); Hematocrit 46.6 % (40-54); Hemoglobin 15.5 g/dL (13.0-16.5); Lymphocyte # 1.86 X10^3/ul (4.0); Mean Corp Hgb Conc 33.3 g/dL (32-36); Mean Corpuscular Hgb 28.2 pg (27.0-32.0); Mean Corpuscular Volume 84.9 fL (80-94); Mean Platelet Vol. 10.8 fl (6.2-12.0); Monocyte# 0.71 X10^3/uL; Monocyte% 10.3 % (0-10); NRBC Flagged by Analyzer 0 % (0-5); Neutrophil # 4.18 X10^3/uL (2.7-7.7); Neutrophil % 60.8 % (47-70); Platelet Count 201 K/mm3 (150-450); Red Blood Count 5.49 M/mm3 (4.6-6.2); White Blood Count 6.9 K/mm3 (4.4-11.0)
[2020-01-15 13:16] LABS: ALB/GLOB Ratio 1.1 RATIO (0.9-2.4); AST(SGOT) 15 U/L (15-37); Alanine Aminotransfer ALT/SGPT 27 U/L (16-61); Albumin, Serum 4.1 g/dL (3.2-5.0); Alkaline Phosphatase 80 U/L (45-117); Anion Gap 9 (5-15); BUN 24 mg/dL (7-18); Calcium,Total 8.8 mg/dL (8.5-10.1); Chloride 106 mmol/L (98-107); Creatinine, Serum 1.09 mg/dL (0.70-1.30); EST Glomerular Filtration Rate 74 mL/min (>60); Est Glom Filt Rate - Afr Amer 89 mL/min (>60); Globulin 3.6 g/dL (2.2-4.2); Glucose 221 mg/dL (74-106); Potassium 3.9 mmol/L (3.5-5.1); Protein, Total 7.7 g/dL (6.4-8.2); Sodium Level 138 mmol/L (136-145); Thyroid Stim Hormone (TSH) 1.51 uIU/mL (0.358-3.74)
== END ==
PROVIDERS: PCP Family Medicine; Visit Provider Family Medicine
DX: R06.02 Shortness of breath (principal)
CPT/HCPCS: 36415; 80053; 84443; 85025

== ENCOUNTER → 2020-05-06 | Outpatient (CLI) | payer OTHER, SELFPAY ==
[2019-06-28 08:16] VITALS: BMI 28.0
== END | disposition home or self-care (01) ==
LOC: MFPLAB 15:12 → LABSPEC 15:14
PROVIDERS: PCP Family Medicine; Referring Provider Family Medicine; Visit Provider Family Medicine
DX: R05 Cough (principal)
CPT/HCPCS: 87635; U0005; U0003

== ENCOUNTER → 2021-01-17 16:29 | Outpatient (CLI) | payer OTHER, SELFPAY ==
[2021-01-17 18:34] LABS: AST(SGOT) 17 U/L (15-37); Alanine Aminotransfer ALT/SGPT 40 U/L (16-61); Albumin, Serum 3.9 g/dL (3.2-5.0); Alkaline Phosphatase 73 U/L (45-117); Anion Gap 8 (5-15); BUN 16 mg/dL (7-18); BUN/Creat Ratio 14.2 RATIO (10-20); Bilirubin, Direct 0.11 mg/dL (0.00-0.30); Calcium,Total 8.7 mg/dL (8.5-10.1); Chloride 105 mmol/L (98-107); Cholesterol 153 mg/dL (200); Creatinine, Serum 1.13 mg/dL (0.70-1.30); EST Glomerular Filtration Rate 70 mL/min (>60); Est Glom Filt Rate - Afr Amer 85 mL/min (>60); Globulin 3.8 g/dL (2.2-4.2); Glucose 137 mg/dL (74-106); High Density Lipoprotein 38 mg/dL; PSA,Total - Annual Screen 3.95 ng/mL (0.00-4.00); Protein, Total 7.7 g/dL (6.4-8.2); Sodium Level 136 mmol/L (136-145); Triglycerides 345 mg/dL; Very Low Density Lipoprotein 69 mg/dL (5-40)
== END ==
PROVIDERS: PCP Family Medicine; Referring Provider Family Medicine; Visit Provider Family Medicine
DX: Z00.00 Encounter for general adult medical examination without abnormal findings (principal); E11.9 Type 2 diabetes mellitus without complications; Z12.5 Encounter for screening for malignant neoplasm of prostate
CPT/HCPCS: 36415; 80048; 80061; 80076; 84153; G0103

== ENCOUNTER → 2021-07-25 | Outpatient (CLI) | payer OTHER, SELFPAY ==
[2021-07-25 17:41] LABS: AST(SGOT) 21 U/L (15-37); Alanine Aminotransfer ALT/SGPT 43 U/L (16-61); Albumin, Serum 4.1 g/dL (3.2-5.0); Alkaline Phosphatase 75 U/L (45-117); Anion Gap 5 (5-15); BUN 23 mg/dL (7-18); BUN/Creat Ratio 23.7 RATIO (10-20); Bilirubin, Direct 0.08 mg/dL (0.00-0.30); Chloride 104 mmol/L (98-107); Creatinine, Serum 0.97 mg/dL (0.70-1.30); EST Glomerular Filtration Rate 84 mL/min (>60); Est Glom Filt Rate - Afr Amer 101 mL/min (>60); Globulin 3.5 g/dL (2.2-4.2); Glucose 186 mg/dL (74-106); Potassium 4.3 mmol/L (3.5-5.1); Protein, Total 7.6 g/dL (6.4-8.2); Sodium Level 135 mmol/L (136-145)
[2021-07-25 17:45] LABS: Hemoglobin A1c 8.5 % (3.8-5.6)
[2021-07-25 20:35] LABS: Vitamin D,25 Hydroxy 24.3 ng/mL
== END | disposition home or self-care (01) ==
LOC: MFPLAB 15:59
PROVIDERS: PCP Family Medicine; Referring Provider Family Medicine; Visit Provider Family Medicine
DX: Z00.00 Encounter for general adult medical examination without abnormal findings (principal); E11.9 Type 2 diabetes mellitus without complications
CPT/HCPCS: 36415; 80048; 80076; 82306; 83036

== ENCOUNTER → 2021-09-01 | Outpatient (CLI) | payer OTHER, SELFPAY ==
[2021-09-01 10:32] LABS: Hematocrit 43.7 % (40-54); Hemoglobin 14.6 g/dL (13.0-16.5); Mean Corp Hgb Conc 33.4 g/dL (32-36); Mean Corpuscular Hgb 28.2 pg (27.0-32.0); Mean Corpuscular Volume 84.4 fL (80-94); Mean Platelet Vol. 11.3 fl (6.2-12.0); Platelet Count 155 K/mm3 (150-450); RBC Distribution Width SD 39.9 fl (35.1-43.9); Red Blood Count 5.18 M/mm3 (4.6-6.2); White Blood Count 6.3 K/mm3 (4.4-11.0)
[2021-09-01 11:02] LABS: ALB/GLOB Ratio 1.1 RATIO (0.9-2.4); AST(SGOT) 15 U/L (15-37); Alanine Aminotransfer ALT/SGPT 35 U/L (16-61); Albumin, Serum 3.8 g/dL (3.2-5.0); Alkaline Phosphatase 64 U/L (45-117); Anion Gap 7 (5-15); BUN 19 mg/dL (7-18); BUN/Creat Ratio 19.9 RATIO (10-20); Calcium,Total 8.8 mg/dL (8.5-10.1); Chloride 110 mmol/L (98-107); Cholesterol 121 mg/dL (200); Creatinine, Serum 0.95 mg/dL (0.70-1.30); EST Glomerular Filtration Rate 86 mL/min (>60); Est Glom Filt Rate - Afr Amer 104 mL/min (>60); Globulin 3.4 g/dL (2.2-4.2); Glucose 149 mg/dL (74-106); High Density Lipoprotein 41 mg/dL; Potassium 4.3 mmol/L (3.5-5.1); Protein, Total 7.2 g/dL (6.4-8.2); Sodium Level 141 mmol/L (136-145); Thyroid Stim Hormone (TSH) 1.16 uIU/mL (0.358-3.74); Triglycerides 122 mg/dL; Very Low Density Lipoprotein 24 mg/dL (5-40)
[2021-09-04 18:26] LABS: Vitamin D 1,25-Dihydroxy 23.4 pg/mL (24.8-81.5)
== END | disposition home or self-care (01) ==
PROVIDERS: PCP Family Medicine; Referring Provider Psychiatry & Neurology Neurology; Visit Provider Psychiatry & Neurology Neurology
DX: E11.9 Type 2 diabetes mellitus without complications (principal); I10 Essential (primary) hypertension; G25.0 Essential tremor; E78.5 Hyperlipidemia, unspecified
CPT/HCPCS: 36415; 80053; 80061; 82652; 84443; 85027

== ENCOUNTER → 2022-01-30 | Outpatient (CLI) | payer OTHER, SELFPAY ==
[2022-01-30 18:12] LABS: PSA,Total - Annual Screen 5.17 ng/mL (0.00-4.00)
== END | disposition home or self-care (01) ==
LOC: MTLAB 16:41
PROVIDERS: PCP Family Medicine; Referring Provider Family Medicine; Visit Provider Family Medicine
DX: Z00.00 Encounter for general adult medical examination without abnormal findings (principal)
CPT/HCPCS: 36415; 84153; G0103

== ENCOUNTER → 2022-07-31 | Outpatient (CLI) | payer SELFPAY ==
[2022-07-31 18:48] LABS: AST(SGOT) 24 U/L (15-37); Alanine Aminotransfer ALT/SGPT 45 U/L (16-61); Alkaline Phosphatase 86 U/L (45-117); Anion Gap 6 (5-15); BUN 33 mg/dL (7-18); BUN/Creat Ratio 34.3 RATIO (10-20); Calcium,Total 9.5 mg/dL (8.5-10.1); Chloride 110 mmol/L (98-107); Cholesterol 152 mg/dL (200); Creatinine, Serum 0.96 mg/dL (0.70-1.30); EST Glomerular Filtration Rate 84 mL/min (>60); Est Glom Filt Rate - Afr Amer 102 mL/min (>60); Globulin 3.8 g/dL (2.2-4.2); Glucose 220 mg/dL (74-106); High Density Lipoprotein 37 mg/dL; Potassium 4.5 mmol/L (3.5-5.1); Protein, Total 7.8 g/dL (6.4-8.2); Sodium Level 137 mmol/L (136-145); Triglycerides 311 mg/dL; Very Low Density Lipoprotein 62 mg/dL (5-40)
== END | disposition home or self-care (01) ==
LOC: MFPLAB 16:53
PROVIDERS: PCP Family Medicine; Visit Provider Family Medicine
DX: E11.9 Type 2 diabetes mellitus without complications (principal)
CPT/HCPCS: 36415; 80048; 80061; 80076

== ENCOUNTER → 2023-07-02 | Outpatient (CLI) | payer SELFPAY ==
[2023-07-02 18:28] LABS: PSA,Total- Diagnostic 6.16 ng/mL (0.0-4.0)
== END | disposition home or self-care (01) ==
LOC: LAB.FUTURE 15:58
PROVIDERS: PCP Family Medicine; Visit Provider Family Medicine
DX: E11.9 Type 2 diabetes mellitus without complications (principal); R97.20 Elevated prostate specific antigen [PSA]
CPT/HCPCS: 36415; 83036; 84153

== ENCOUNTER → 2024-02-02 | Outpatient (CLI) | payer BC, SELFPAY | END | disposition home or self-care (01) | LOC: MFPLAB 11:54 | PROVIDERS: PCP Family Medicine | DX: R97.20 Elevated prostate specific antigen [PSA] (principal) | CPT/HCPCS: 36415; 84153; G0103 ==

== ENCOUNTER 2024-02-08 17:15 | Emergency (ER) | payer BC, SELFPAY ==
[2024-02-08 17:16] VITALS: BP 118/83; PULSE 100; PULSE 103; RESP 18; TEMP 37; TEMP 37.2; O2SAT 100; O2SAT 98; BMI 25.8
[2024-02-08 18:05] LABS: Bacteria 0 SEEN /hpf (None Seen); Mucous, Urine 0 SEEN /hpf (<or=2+)
[2024-02-08 18:21] LABS: Color, Urine Yellow (Yellow); Glucose, Dipstick Normal (Normal); Ketone-Dipstick Negative (Negative); Leukocyte Esterase-Dipstick 100 /ul (Negative); Nitrite-Dipstick Negative (Negative); Occult Blood-Urine 250 /ul (Negative); Protein-Dipstick 100 mg/dl (Negative); Urine Bilirubin Dipstick Negative (Negative); Urine Clarity Sl. Cloudy (Clear); Urine Urobilinogen Normal (Normal)
[2024-02-08 18:47] LABS: Red Blood Cells-Urine 10-25 SEEN /hpf (0-5); Squamous Epithelial Cells - UA 0-5 SEEN /hpf (0-5); White Blood Cells 5-10 SEEN /hpf (0-5)
[2024-02-08 18:48] LABS: Amorphous Sediment 1+ URATE
--- NOTE | 2024-02-08 21:34 | CT_ITS ---
STUDY: CT ABDOMEN AND PELVIS WITHOUT CONTRAST REASON FOR EXAM: Male, 63 years old. Kidney Stone -- Right flank pain with hematuria RADIATION DOSAGE (If Supplied By Facility): CTDIvol = ( 8.99 ) mGy, DLP = ( 536.86 ) mGycm TECHNIQUE: Transaxial images were obtained from the dome of the diaphragm to the symphysis pubis without oral contrast, and without intravenous contrast. Sagittal and coronal images were reconstructed. Individualized dose optimization techniques were used for this CT. COMPARISON: March 16, 2009 FINDINGS: The visualized lung bases are unremarkable. The visualized portions of the heart are within normal limits. Normal liver. Normal gallbladder and extrahepatic biliary system. Normal spleen. Normal pancreas. Normal bilateral adrenal glands. Normal right kidney. Normal left kidney. Normal visualized stomach. Normal small intestine. Diffuse fecal retention is seen throughout the colon.. No evidence for acute appendicitis.. Atherosclerotic change of the aorta without evidence for aneurysm. Normal inferior vena cava. Normal retroperitoneum. Prostate is enlarged impinging upon the base of bladder which is incompletely distended and thick walled. Normal abdominal wall. Lumbar spine demonstrates degenerative change. CT/Abdomen/Pelvis without Cont IMPRESSION: Diffuse colonic fecal retention.. No evidence for renal obstruction or ureteral calculus No evidence for small bowel obstruction or acute appendicitis. Electronically Signed: Migue Funez MD at 23:04 EST Reading Location ID and State: [facility] / [place] Tel , Service support ,
--- NOTE | 2024-02-08 21:55 | EDS_ITS ---
HPI History of Present Illness Chief Complaint: Male Pain/Injury Informant: patient Pain Onset: Today (Gross hematuria and right flank pain) Context: Sudden Onset Timing: Continuous Current Severity: Mild Worsened by: Nothing Relieved by: nothing Appearance Lesion(s): No Genital Edema: No Penile Discharge Genital Discharge Amount: None Urinary Symptoms Genitourinary Symptoms: Urgency, Hesitancy, Burning and Hematuria Related History Sexually: Active Unprotected Sex: Yes Bladder/Kidney Infection: No Enlarged Prostate: Yes Prostate Infection: No Prostate Cancer: No Narrative Narrative: Patient is 61-year-old male. He has history of type 2 diabetes, hypertension who presents because of discomfort with urination right flank pain and hematuria. He has no history of pyelonephritis. He does have a history of enlarged prostate. He denies history of renal or ureteral stone. He denies fever or chills. He denies vomiting or diarrhea. He denies skin lesions. He denies direct or indirect trauma. Prior similar symptoms: No Recent Illness/Hospitalization: No PFSH PFSH Medical History Non-smoker Sleep apnea Vision problems IBS (irritable bowel syndrome) Hives High triglycerides High cholesterol Hearing problem Incontinence Back pain Limb weakness Difficulty balancing Knee pain Diarrhea Chest pain Severe headache Hay fever Fatigue Diabetes Shoulder pain Hemorrhoids SOB (shortness of breath) Loss of consciousness Home Medications ?Medication ?Instructions ?Recorded ?Last Taken ?Type metformin 500 mg tablet 1,000 mg PO DAILY 12/07/15 12/07/15 History loperamide 2 mg capsule 2 mg PO Q12H METFORMIN 05/20/19 Unknown History lisinopril 10 mg tablet 10 mg PO DAILY 06/23/21 Unknown History simvastatin 40 mg tablet 40 mg PO QHS 06/23/21 Unknown History sitagliptin phosphate 100 mg 100 mg PO DAILY 06/23/21 Unknown History tablet (Januvia) cholecalciferol (vitamin D3) 25 1,000 unit PO DAILY 02/08/24 Unknown History mcg (1,000 unit) capsule geriatric multivitamin-min 1 tab PO DAILY 02/08/24 Unknown History semaglutide 0.25 mg or 0.5 mg (2 0.25 mg subcut QWEEK 02/08/24 01/31/24 History mg/1.5 mL) subcutaneous pen injector (Ozempic) Allergy/AdvReac Type Severity Reaction Status Date / Time No Known Allergies Allergy Verified 02/08/24 17:16 Family History Other Alcoholism Arthritis Bowel disease Diabetes Heart disease High cholesterol Hx of blood clots Hypertension Myocardial infarction Surgical History History of abdominal surgery Social History (Updated 12/22/21 @ 15:41 by Paola Segura) Smoking Status: Never smoker second hand exposure: No alcohol intake: current alcohol intake frequency: a few times a week substance use type: other what type of physical activity do you participate in: none, walking and other miley/alevism: Hoahaoism seatbelt use: always ROS ROS ED Constitutional Constitutional ED: Denies chills, fever(s), subjective or sweats Cardiovascular Cardiovascular: Denies chest pain, orthopnea, palpitations or paroxysmal nocturnal dyspnea Respiratory/Chest Respiratory/Chest: Denies cough, dyspnea, dyspnea on exertion, orthopnea or paroxysmal nocturnal dyspnea Gastrointestinal Gastrointestinal: Denies abdominal pain, nausea or vomiting Genitourinary Genitourinary ED: Reports dysuria and hematuria; Denies urinary frequency Musculoskeletal Musculoskeletal: Denies arthralgias, back pain or myalgias Neurologic Neurologic: Denies headache(s) or paresthesias Psychiatric Psychiatric: Denies anxiety or depression Endocrine Endocrinology: Denies polydipsia or polyphagia Hematologic/Lymphatic Hematologic/Lymphatic: Denies easy bleeding or easy bruising EXAM Physical Exam Const Vital Signs: 02/08/24 17:16 02/08/24 17:16 02/08/24 23:04 Temperature 98.9 F 98.6 F 98 F Temperature Source Oral Oral Oral Pulse Rate 100 103 H 81 Respiratory Rate 18 18 17 Blood Pressure 118/83 H 118/83 H 140/81 H Blood Pressure Mean 94 94 100 Pulse Ox 100 98 98 Oxygen Delivery Method Room Air Room Air Room Air Positive well nourished and well developed General Appearance ED: well developed and NAD; Negative for pallor HEENT normocephalic and atraumatic Eyes PERRL and EOMs intact bilaterally General Eye ED: Negative for pale conjunctiva or scleral icterus Resp normal respiratory effort and clear to auscultation bilaterally Cardio regular rate, regular rhythm, S1 normal heart sound, S2 normal heart sound and no murmurs GI non-tender, non-distended and no masses GI Narrative: Patient's prostate is enlarged. The right hemisphere is slight much larger than left. Is very firm. He reports mild tenderness. no CVA tenderness Back/Spine no CVA tenderness Neuro oriented x3 and CN's II-XII intact bilaterally Sensorium / Orientation: alert Psych mental status grossly normal Skin General Skin Exam: Negative for jaundice or pallor MDM MDM MDM Narrative Medical decision making narrative: With him complaining of pain need to assess for renal/ureteral lithiasis with hydronephrosis. This may also represent a tumor. Patient states his prostate is slightly enlarged. He informing that he did have PSA screening done earlier this week. He does not have a local urologist. History & Record Review Additional record(s) reviewed:: Prior outpatient record and Prior labs Lab Data Attestation: I reviewed the patient's lab results. Labs: Laboratory Results - last 24 hr 02/08/24 02/08/24 17:54 23:01 WBC 9.8 RBC 5.27 Hgb 14.7 Hct 44.4 MCV 84.3 MCH 27.9 MCHC 33.1 RDW Std Deviation 38.6 RDW Coeff of Saleem 12.5 Plt Count 280 MPV 9.4 Immature Gran % (Auto) 0.300 Neut % (Auto) 72.6 H Lymph % (Auto) 17.5 L [place] % (Auto) 8.0 Eos % (Auto) 1.3 Baso % (Auto) 0.3 Absolute Neuts (auto) 7.1 Absolute Lymphs (auto) 1.72 Nucleated RBC % 0 Sodium 140 Potassium 4.3 Chloride 108 H Carbon Dioxide 28.0 Anion Gap 4 L BUN 17 Creatinine 0.79 Estim Creat Clear Calc 106.41 Est GFR (MDRD) Af Amer 127 Est GFR (MDRD) Non-Af 105 BUN/Creatinine Ratio 21.5 H Glucose 157 H Calcium 9.5 Urine Color Yellow Urine Clarity Sl. Cloudy Urine pH 6.0 Ur Specific [place] 1.010 Urine Protein 100 H Urine Glucose (UA) Normal Urine Ketones Negative Urine Occult Blood 250 H Urine Nitrite Negative Urine Bilirubin Negative Urine Urobilinogen Normal Ur Leukocyte Esterase 100 H Urine RBC 10-25 SEEN Urine WBC 5-10 SEEN Ur Squamous Epith Cells 0-5 SEEN Amorphous Sediment 1+ URATE Urine Bacteria 0 SEEN Urine Mucus 0 SEEN Patient had a PSA July 02, 2023 with 6.16. PSA was redrawn on February 01 and is elevated at 12.9. Radiography Diagnostic Testing: Clinical Impression(s) from Imaging Studies Abdomen/Pelvis CT 02/08/24 21:34 IMPRESSION: Diffuse colonic fecal retention.. No evidence for renal obstruction or ureteral calculus No evidence for small bowel obstruction or acute appendicitis. Electronically Signed: Migue Funez MD at 23:04 EST Reading Location ID and State: [facility] / [place] Tel , Service support , Management Discussion w/another healthcare provider: [employer] Super[employer] (Dr. Lieberman was informed of patient's history physical and concern regarding physical exam and elevated PSA which has doubled in the past 6 months.) Discharge Plan Triage Chief Complaint: Male Pain/Injury ED Provider: Ryland Rivera Dx/Rx/DC Orders Clinical Impression: Benign prostatic hyperplasia, Benign essential hypertension, DM type 2 (diabetes mellitus, type 2), Hematuria, BPH with elevated PSA Instructions: ED BPH (Enlarged Prostate) Prescriptions: No Action Januvia 100 mg tablet 100 mg PO DAILY simvastatin 40 mg tablet 40 mg PO QHS lisinopril 10 mg tablet 10 mg PO DAILY metformin 500 MG tablet 1,000 mg PO DAILY loperamide 2 MG capsule 2 mg PO Q12H Rx Instructions: am and pm geriatric multivitamin-min Tablet 1 tab PO DAILY cholecalciferol (vitamin D3) 25 mcg (1,000 unit) capsule 1,000 unit PO DAILY Ozempic 0.25 mg or 0.5 mg(2 mg/1.5 mL) pen injector 0.25 mg subcut QWEEK Rx Instructions: for 4 weeks Primary Care Provider: Katelyn Heath Referrals: Katelyn Heath MD [Primary Care Provider] - Simba Lieberman MD [Med Staff - Active Staff] - 3-5 Days Print Language: Guyanese Disposition Disposition: Home, Self Care
[2024-02-08 23:04] VITALS: BP 140/81; PULSE 81; RESP 17; TEMP 36.6; O2SAT 98
[2024-02-08 23:09] LABS: Absolute Lymphocyte Count 1.72 X10^3/uL (0.83-4.51); Absolute Neutrophil Count 7.1 X10^3/uL (2.0-7.7); Basophil# 0.03 X10^3/uL; Basophil% 0.3 % (0-1); Eosinophil# 0.13 X10^3/uL; Eosinophils% 1.3 % (0-5); Hematocrit 44.4 % (40-54); Hemoglobin 14.7 g/dL (13.0-16.5); Lymphocyte # 1.72 X10^3/ul (0.83-4.51); Lymphocyte % 17.5 % (19-41); Mean Corp Hgb Conc 33.1 g/dL (32-36); Mean Corpuscular Hgb 27.9 pg (27.0-32.0); Mean Corpuscular Volume 84.3 fL (80-94); Mean Platelet Vol. 9.4 fl (6.2-12.0); Monocyte# 0.79 X10^3/uL; NRBC Flagged by Analyzer 0 % (0-5); Neutrophil # 7.13 X10^3/uL (2.7-7.7); Neutrophil % 72.6 % (47-70); Platelet Count 280 K/mm3 (150-450); RBC Distribution Width CV 12.5 % (11.6-14.6); RBC Distribution Width SD 38.6 fl (35.1-43.9); Red Blood Count 5.27 M/mm3 (4.6-6.2); White Blood Count 9.8 K/mm3 (4.4-11.0)
[2024-02-08 23:24] LABS: Anion Gap 4 (5-15); BUN 17 mg/dL (7-18); BUN/Creat Ratio 21.5 RATIO (10-20); Calcium,Total 9.5 mg/dL (8.5-10.1); Chloride 108 mmol/L (98-107); Creatinine, Serum 0.79 mg/dL (0.70-1.30); EST Glomerular Filtration Rate 105 mL/min (>60); Est Glom Filt Rate - Afr Amer 127 mL/min (>60); Estimated Creatinine Clearance 106.41 ml/min; Glucose 157 mg/dL (74-106); Potassium 4.3 mmol/L (3.5-5.1); Sodium Level 140 mmol/L (136-145)
[2024-02-08 23:45] VITALS: BP 140/81; PULSE 82; RESP 17; TEMP 36.7; O2SAT 99
[2024-02-08] MEDS: Phenazopyridine 95 MG Tablet 190 MG PO (23:58)
== END 2024-02-09 | disposition home or self-care (01) ==
PROVIDERS: Emergency Provider Emergency Medicine; PCP Family Medicine; Visit Provider Emergency Medicine
DX: N40.1 Benign prostatic hyperplasia with lower urinary tract symptoms (principal); E11.9 Type 2 diabetes mellitus without complications; R31.0 Gross hematuria; R39.15 Urgency of urination; R97.20 Elevated prostate specific antigen [PSA]; R39.11 Hesitancy of micturition; I10 Essential (primary) hypertension; E78.2 Mixed hyperlipidemia; Z79.84 Long term (current) use of oral hypoglycemic drugs; Z79.899 Other long term (current) drug therapy; Z98.890 Other specified postprocedural states
CPT/HCPCS: 74176; 80048; 81001; 85025; 99283; A4216

== ENCOUNTER → 2024-02-15 | Outpatient (CLI) | payer BC, SELFPAY ==
[2024-02-17 13:08] LABS: PSA, Free 1.65 ng/mL; PSA, Free % 13.2 % (.)
== END | disposition home or self-care (01) ==
LOC: LAB 14:23
PROVIDERS: PCP Family Medicine; Referring Provider Urology; Visit Provider Urology
DX: N40.1 Benign prostatic hyperplasia with lower urinary tract symptoms (principal)
CPT/HCPCS: 36415; 84153; 84154

== ENCOUNTER → 2024-04-03 | Outpatient (CLI) | payer BC, SELFPAY ==
[2024-04-03 16:20] LABS: PSA,Total- Diagnostic 9.07 ng/mL (0.0-4.0)
[2024-04-05 13:06] LABS: PSA, Free 2.22 ng/mL; PSA, Free % 29.4 % (.)
== END | disposition home or self-care (01) ==
LOC: LAB 13:58
PROVIDERS: PCP Family Medicine; Referring Provider Urology; Visit Provider Urology
DX: N40.1 Benign prostatic hyperplasia with lower urinary tract symptoms (principal)
CPT/HCPCS: 36415; 84153; 84154

== ENCOUNTER → 2024-07-21 | Outpatient (CLI) | payer BC, SELFPAY ==
[2024-07-21 18:00] LABS: Absolute Lymphocyte Count 2.06 X10^3/uL (0.83-4.51); Absolute Neutrophil Count 4.5 X10^3/uL (2.0-7.7); Basophil# 0.02 X10^3/uL; Basophil% 0.3 % (0-1); Eosinophil# 0.12 X10^3/uL; Eosinophils% 1.6 % (0-5); Hematocrit 44.8 % (40-54); Lymphocyte # 2.06 X10^3/ul (0.83-4.51); Lymphocyte % 27.5 % (19-41); Mean Corp Hgb Conc 33.5 g/dL (32-36); Mean Corpuscular Hgb 27.8 pg (27.0-32.0); Mean Corpuscular Volume 83.1 fL (80-94); Mean Platelet Vol. 10.4 fl (6.2-12.0); Monocyte# 0.76 X10^3/uL; Monocyte% 10.1 % (0-10); NRBC Flagged by Analyzer 0 % (0-5); Neutrophil # 4.52 X10^3/uL (2.7-7.7); Neutrophil % 60.4 % (47-70); Platelet Count 201 K/mm3 (150-450); RBC Distribution Width CV 13.2 % (11.6-14.6); RBC Distribution Width SD 39.7 fl (35.1-43.9); Red Blood Count 5.39 M/mm3 (4.6-6.2); White Blood Count 7.5 K/mm3 (4.4-11.0)
[2024-07-21 18:10] LABS: AST(SGOT) 19 U/L (<=37); Alanine Aminotransfer ALT/SGPT 21 U/L (<=46); Albumin, Serum 4.7 g/dL (3.4-4.8); Alkaline Phosphatase 84 U/L (40-129); Anion Gap 11 (5-15); BUN 27 mg/dL (4-19); BUN/Creat Ratio 29.2 RATIO (10-20); Bilirubin, Direct 0.15 mg/dL (0.00-0.30); Calcium,Total 9.8 mg/dL (7.6-11.0); Carbon Dioxide 24.1 mmol/L (21.0-32.0); Chloride 103 mmol/L (98-108); Cholesterol 159 mg/dL (<=200); Creatinine, Serum 0.92 mg/dL (0.70-1.20); EST Glomerular Filtration Rate 94 (>60); Glucose 141 mg/dL (70-99); High Density Lipoprotein 42 mg/dL; Low Density Lipoprotein Calc. 69 mg/dL; Potassium 4.4 mmol/L (3.3-5.1); Protein, Total 7.6 g/dL (5.9-8.4); Sodium Level 138 mmol/L (133-145); Total Bilirubin 0.32 mg/dL (0.00-1.30); Triglycerides 242 mg/dL; Very Low Density Lipoprotein 48 mg/dL (5-40); cholesterol:hdl ratio screen 3.79
[2024-07-21 20:10] LABS: Hemoglobin A1c 8.3 % (<=5.6)
== END | disposition home or self-care (01) ==
LOC: MFPLAB 16:53
PROVIDERS: PCP Family Medicine; Referring Provider Family Medicine; Visit Provider Family Medicine
DX: E11.59 Type 2 diabetes mellitus with other circulatory complications (principal); I10 Essential (primary) hypertension
CPT/HCPCS: 36415; 80048; 80061; 80076; 83036; 85025

== ENCOUNTER → 2024-09-18 | Outpatient (CLI) | payer BC, SELFPAY | END | disposition home or self-care (01) | LOC: MTRAD 15:50 | PROVIDERS: PCP Family Medicine; Referring Provider Family Medicine; Visit Provider Family Medicine | DX: I30.9 Acute pericarditis, unspecified (principal) | CPT/HCPCS: 71046 ==

== ENCOUNTER → 2025-01-29 | Outpatient (CLI) | payer BC, SELFPAY ==
[2025-01-29 18:11] LABS: Creatinine, Urine (random) 213.00 mg/dL (39.00-259.00); Microalbumin,Random Urine 19.1 mg/L (<20 mg/L)
[2025-01-29 18:15] LABS: PSA,Total- Diagnostic 4.86 ng/mL (0.00-4.00)
== END | disposition home or self-care (01) ==
LOC: MFPLAB 15:42
PROVIDERS: PCP Family Medicine; Visit Provider Family Medicine
DX: E11.9 Type 2 diabetes mellitus without complications (principal); R97.20 Elevated prostate specific antigen [PSA]
CPT/HCPCS: 36415; 82043; 82570; 83036; 84153